=== PATIENT | male | born 1965 | race Caucasian/White ===

== ENCOUNTER 2022-06-19 12:59 | Emergency (ER) | payer BC ==
[~2022-06-19] VITALS: Ht 174 cm; Wt 86.2 kg
== END 2022-06-19 18:03 | disposition home or self-care (01) ==
LOC: ER 12:59
DX: R07.89 Other chest pain (principal); F41.9 Anxiety disorder, unspecified; F40.240 Claustrophobia; Z20.828 Contact with and (suspected) exposure to other viral communicable diseases